=== PATIENT | female | born 1945 | race Caucasian/White ===

== ENCOUNTER 2017-01-14 20:51 | Emergency (ER) | payer MEDICARE, MEDICAID ==
[~2017-01-14] VITALS: Ht 160 cm; Wt 81.8 kg
[~2017-01-14 20:51] MED LIST: AC500T PO; ASPI-345 PO; ATOR20TA PO; BENA10TA2 PO; BUSP10TA95 PO; CALC-671 PO; DAYQUIL PO; DM/P295L13 PO; DOCU100C8 PO; ESCI10TA49 PO; LORA-44 PO; MECL-105 PO; MELO-255 PO; MULT1CAP27 PO; TROL177. TOP; [UNRECOGNIZED DRUG - CODE] PO; [UNRECOGNIZED DRUG - CODE] TOP
--- OUTSIDE RECORDS SUMMARY | 2017-01-14 20:56 | XMS REPORT | Continuity of Care Document ---
Author Author [facility] Address Unknown Phone Unavailable Allergies Active Description Code Type Severity Reaction Onset Reported/Identified Relationship to Patient Clinical Status Yes Sulfa (Sulfonamide Antibiotics) 491 3 N/A N/A Yes SULFA SULFA Unknown UNKNOWN 07/12/2012 Yes Sulfa (Sulfonamide Antibiotics) [id number] Drug Allergy Unknown N/A 03/25/2015 Medications Problems Date Dx Coded Attending Type Code Diagnosis Diagnosed By 07/12/2012 Ot 873.42 07/12/2012 Ot 910.0 07/12/2012 Ot E885.9 10/29/2014 Ot 174.9 10/29/2014 RAUQEL GREGORIO, SINDY Mina Ot V10.3 10/29/2014 RAQUEL GREGORIO, SINDY W Ot V16.3 11/19/2014 RAQUEL GREGORIO, SINDY W Ot V10.3 01/07/2015 RAQUEL GREGORIO, SINDY W Ot V10.3 03/20/2015 Ot 174.9 03/20/2015 RAQUEL GREGORIO, SINDY W Ot V10.3 03/20/2015 RAQUEL GREGORIO, SINDY W Ot V16.3 03/20/2015 RAQUEL GREGORIO, SINDY Mina Ot V10.3 03/25/2015 KARMEN GREGORIO, MICHAEL Ot 873.42 03/25/2015 KARMEN GREGORIO, MICHAEL Ot 916.0 03/25/2015 KARMEN GREGORIO, MICHAEL Ot E000.9 03/25/2015 KARMEN GREGORIO, MICHAEL Ot E030 03/25/2015 KARMEN GREGORIO, MICHAEL Ot E849.9 03/25/2015 KARMEN GREGORIO, MICHAEL Ot E885.9 04/04/2015 RAQUEL GREGORIO, SINDY Mina Ot 719.46 04/04/2015 RAQUEL GREGORIO, SINDY Mina Ot V57.1 04/09/2015 RAQUEL GREGORIO, SINDY Mina Ot 719.46 04/09/2015 RAQUEL GREGORIO, SINDY Mina Ot V57.1 04/09/2015 RAQUEL GREGORIO, SINDY W Ot 719.46 04/09/2015 RAQUEL GREGORIO, SINDY W Ot V57.1 04/11/2015 RAQUEL GREGORIO, SINDY W Ot 719.46 04/11/2015 RAQUEL GREGORIO, SINDY W Ot V57.1 04/17/2015 KARMEN GREGORIO, MICHAEL Ot 379.91 04/17/2015 KARMEN GREGORIO, MICHAEL Ot 729.5 04/17/2015 KARMEN GREGORIO, MICHAEL Ot E001.0 04/17/2015 KARMEN GREGORIO, MICHAEL Ot E849.7 04/17/2015 KARMEN GREGORIO, MICHAEL Ot E888.9 04/18/2015 RAQUEL GREGORIO, SINDY W Ot 719.46 04/18/2015 RAQUEL GREGORIO, SINDY W Ot V57.1 04/19/2015 RAQUEL GREGORIO, SINDY W Ot 719.46 04/19/2015 RAQUEL GREGORIO, SINDY W Ot V57.1 04/23/2015 RAQUEL GREGORIO, SINDY W Ot 719.46 04/23/2015 RAQUEL GREGORIO, SINDY W Ot V57.1 04/25/2015 RAQUEL GREGORIO, SINDY W Ot 719.46 04/25/2015 RAQUEL GREGORIO, SINDY W Ot V57.1 04/25/2015 RAQUEL GREGORIO, SINDY W Ot 719.46 04/25/2015 RAQUEL GREGORIO, SINDY W Ot V57.1 04/30/2015 RAQUEL GREGORIO, SINDY W Ot 719.46 04/30/2015 RAQUEL GREGORIO, SINDY W Ot V57.1 05/07/2015 RAQUEL GREGORIO, SINDY W Ot 719.46 05/07/2015 RAQUEL GREGORIO, SINDY W Ot V57.1 05/09/2015 RAQUEL GREGORIO, SINDY W Ot 719.46 05/09/2015 RAQUEL GREGORIO, SINDY W Ot V57.1 05/09/2015 RAQUEL GREGORIO, SINDY W Ot 719.46 05/09/2015 RAQUEL GREGORIO, SINDY W Ot V57.1 11/25/2015 Ot 174.9 11/25/2015 RAQUEL GREGORIO, SINDY W Ot V10.3 11/25/2015 RAQUEL GREGORIO, SINDY Mina Ot V16.3 11/25/2015 RAQUEL GREGORIO, SINDY W Ot V10.3 11/25/2015 KARMEN GREGORIO, MICHAEL Ot 379.91 11/25/2015 KARMEN GREGORIO, MICHAEL Ot 729.5 11/25/2015 KARMEN GREGORIO, MICHAEL Ot E001.0 11/25/2015 KARMEN GREGORIO, MICHAEL Ot E849.7 11/25/2015 KARMEN GREGORIO, MICHAEL Ot E888.9 11/25/2015 Ot 873.0 11/25/2015 Ot E000.9 11/25/2015 Ot E030 11/25/2015 Ot E849.6 11/25/2015 Ot E886.9 12/04/2015 RAQUEL GREGORIO, SINDY Mina Ot Z85.3 02/18/2016 RAQUEL GREGORIO, SINDY Mina Ot Z85.3 PERSONAL HISTORY OF MALIGNANT NEOPLASM O 04/30/2016 RAQUEL GREGORIO, SINDY Mina Ot M50.32 OTHER CERVICAL DISC DEGENERATION, MID-CE 04/30/2016 RAQUEL GREGORIO, SINDY Mina Ot M54.12 RADICULOPATHY, CERVICAL REGION 05/14/2016 RAQUEL GREGORIO, SINDY Mina Ot M50.32 OTHER CERVICAL DISC DEGENERATION, MID-CE 05/14/2016 RAQUEL GREGORIO, SINDY Mina Ot M54.12 RADICULOPATHY, CERVICAL REGION 05/20/2016 RAQUEL GREGORIO, SINDY Mina Ot M50.32 OTHER CERVICAL DISC DEGENERATION, MID-CE 05/20/2016 RAQUEL GREGORIO, SINDY Mina Ot M54.12 RADICULOPATHY, CERVICAL REGION 07/13/2016 Alexandrea GREGORIO, Nikoil L Ot E78.5 HYPERLIPIDEMIA, UNSPECIFIED 07/13/2016 Alexandrea GREGORIO, Karil L Ot E78.5 HYPERLIPIDEMIA, UNSPECIFIED 07/14/2016 Alexandrea GREGORIO, Karil L Ot E78.5 HYPERLIPIDEMIA, UNSPECIFIED 07/16/2016 Alexandrea GREGORIO, Karil L Ot E78.5 HYPERLIPIDEMIA, UNSPECIFIED 07/16/2016 Alexandrea GREGORIO, Karil L Ot E78.5 HYPERLIPIDEMIA, UNSPECIFIED 08/05/2016 Alexandrea GREGORIO, Nikoil L Ot E78.5 HYPERLIPIDEMIA, UNSPECIFIED 12/07/2016 W G56.02 Carpal tunnel syndrome of left wrist 12/07/2016 W M25.532 Left wrist pain Procedures Code Description [place] [address] X-RAY EXAM OF WRIST 10/28/2016 26029 OFFICE/OUTPATIENT VISIT NEW 10/28/2016 Results Test Result Range LIVER PANEL - 07/13/16 07:25 BILIRUBIN,TOTAL 0.6 0.1-1.0 Serum or plasma alkaline phosphatase measurement 62 38-126 ASPARTATE AMINO TRANSFERASE 32 15-37 ALANINE AMINOTRANSFERASE 27 30-65 Serum or plasma conjugated bilirubin/total bilirubin 0.0 0.0-0.4 Serum or plasma total protein measurement 8.5 6.4-8.5 Serum or plasma albumin measurement 4.6 3.4-5.0 LIPID PANEL - 07/13/16 07:25 Cholesterol 193 50-200 HDL Cholesterol 65 40-60 Triglycerides 186 10-150 LDL CHOLESTEROL 91 50-130 VLDL Cholesterol, calc 37 4.00-40.00 Cholesterol.total/Cholesterol.in HDL 3.0 0.0-5.0 Encounters ACCT No. Visit Date/Time Discharge Status Pt. Type Provider Facility Loc./Unit Complaint [id number] 07/14/2016 08:39:00 2015 08:39:00 CAN Preadmit Alexandrea GREGORIO, [facility] LAB [id number] 06/10/2015 09:04:00 2014 23:59:59 CLS Outpatient [facility] EMS [id number] 05/09/2015 10:00:00 2014 14:00:00 DIS Outpatient RAQUEL GREGORIO, [facility] PT [id number] 03/25/2015 18:35:00 2014 23:59:59 CLS Outpatient KARMEN GREGORIO, [facility] EMS [id number] 03/25/2015 18:45:00 2014 20:15:00 DIS Emergency KARMEN GREGORIO, [facility] ED [id number] 10/29/2014 09:52:00 2014 23:59:59 CLS Outpatient RAQUEL GREGORIO, [facility] RAD [id number] 07/05/2013 10:12:00 2012 23:59:59 CLS Outpatient RAQUEL GREGORIO, [facility] RAD [id number] 07/13/2016 07:40:00 ACT Outpatient Alexandrea GREGORIO, [facility] LAB LAB DROP OFF BY AA [id number] 04/27/2016 15:39:00 ACT Outpatient RAQUEL GREGORIO, [facility] RAD LEFT AERM RADICULOPATHY [id number] 11/25/2015 10:08:00 ACT Outpatient RAQUEL GREGORIO, [facility] RAD [id number] 07/12/2012 19:33:00 Document Registration [id number] 06/20/2012 10:42:00 Document Registration
[2017-01-14] MEDS ORDERED: SODIUM CHLORIDE FLUSH 10 ML SYR IV PRN (21:00)
[2017-01-14] MEDS ORDERED: SODIUM CHLORIDE 250 ML IV PRN (21:00)
[2017-01-14] MEDS ORDERED: morphine INJ 4 MG/ML 1 ML SYRINGE IV PRN (21:00)
[2017-01-14] MEDS ORDERED: SODIUM CHLORIDE FLUSH 3 ML SYR IV PRN (21:00)
[2017-01-14] MEDS ORDERED: NITROGLYCERIN SUBLINGUAL 0.4 MG (NITROQUICK) TABLET SL PRN (21:00)
[2017-01-14] MEDS ORDERED: ASPIRIN 81 MG CHEW (LOW-DOSE) PO ONE (21:00)
[2017-01-14] MEDS ORDERED: ONDANSETRON 2 MG/ML (Z0FRAN) 2 ML VIAL IV ONE (21:00)
--- NOTE | 2017-01-14 21:17 | NUR ---
Pt denies nausea- prn zofran held for now.
--- NOTE | 2017-01-14 21:20 | NUR ---
Paged radiology dept. for xray.
[2017-01-14] MEDS ORDERED: ARIP2TAB11 PO (21:23)
[2017-01-14] MEDS ORDERED: MULT-954 PO (21:23)
[2017-01-14] MEDS ORDERED: MELO-255 PO (21:23)
[2017-01-14 21:28] LABS: BASOPHILS % (AUTO) 0 % (0-2); EOSINOPHILS # (AUTO) 0.2 10^3uL; EOSINOPHILS % (AUTO) 3 % (0-4); LYMPHOCYTES # (AUTO) 2.6 X10^3; MEAN CORPUSCULAR HEMOGLOBIN 29.8 PG (26.0-34.0); MEAN CORPUSCULAR HGB CONC 33.4 g/dL (31.0-37.0); MEAN CORPUSCULAR VOLUME 89 FL (80-100); MEAN PLATELET VOLUME 9.8 FL (6.0-9.5); MONOCYTES # (AUTO) 0.7 X10^3; MONOCYTES % (AUTO) 10 % (3-11); NEUTROPHILS # (AUTO) 3.2 X10^3; NEUTROPHILS % (AUTO) 48 % (51-67); PLATELET COUNT 165 10^3uL (150-450); WHITE BLOOD COUNT 6.59 10^3uL (4.0-11.0)
--- NOTE | 2017-01-14 21:34 | Diagnostic Imaging Report ---
INDICATION: Chest pain Portable chest 9:25 PM Heart size and pulmonary vascularity are normal. Lungs are clear. There are no effusions or pneumothoraces. IMPRESSION: Negative chest Dictated by: Dictated on workstation # [id number]
[2017-01-14 21:41] LABS: ALBUMIN 4.2 g/dL (3.4-5.0); ALKALINE PHOSPHATASE 74 U/L (38-126); ANION GAP 16.7 MEQ/L (3-15); BUN/CREATININE RATIO 38 (10-20); CALCULATED IONIZED CALCIUM 3.9 mg/dL (3.8-4.6); CREATINE KINASE 137 U/L (30-135); MAGNESIUM* 1.9 mg/dL (1.6-2.3); TOTAL PROTEIN 7.5 g/dL (6.4-8.5)
[2017-01-14 22:26] VITALS: BP 148/74
== END 2017-01-14 22:27 | disposition home or self-care (01) ==
LOC: EDUNIT# 20:51 → ED 20:52
DX: R07.89 Other chest pain (principal); I10 Essential (primary) hypertension
CPT/HCPCS: 36415; 71010; 80053; 82550; 82553; 83735; 83880; 84443; 84484; 85025; 85379; 85610; 85730; 93005; 99285; A9270; 93010; 99284